=== PATIENT | male | born 1970 | race Caucasian/White ===

== ENCOUNTER → 2018-04-08 | Outpatient (CLI) | payer OTHER ==
[~2018-04-08] MED LIST: ALLOPURINOL300 MG PO; CLARITIN10 MG PO; CRESTOR20 M1 PO; FENOFIBRATE160 MG PO; FLONASE ALLERG9.9 ML NAS; JANUMET 1000 MG1 TA1 PO; LANTUS SOLOS100 U/M1 SC; LISINOPRIL10 M1 PO; PREDNISONE10 MG PO; VITAMIN D50000 I3 PO
== END | disposition home or self-care (01) ==
LOC: US 09:12
DX: K76.0 Fatty (change of) liver, not elsewhere classified (principal)